=== PATIENT | female | born 1975 | race Caucasian/White ===

== ENCOUNTER 2019-09-19 13:24 | Emergency (ER) | payer MEDICAID ==
[~2019-09-19] VITALS: Ht 170.2 cm; Wt 79.0 kg
[2019-09-19] MEDS ORDERED: ketorolac trometh inj. 60 MG/2 ML VIAL IM ONE (15:35)
[2019-09-19] MEDS ORDERED: LIDOcaine 5% patch TP ONE (15:35)
[2019-09-19] MEDS ORDERED: triamcinolone acetonide 40mg/ml inj IM ONE (15:35)
[2019-09-19 15:48] VITALS: BP 111/74
[2019-09-19] MEDS ORDERED: HYDR-4383 PO (16:25)
[2019-09-19] MEDS ORDERED: CELE-193 PO (16:25)
[2019-09-19] MEDS ORDERED: METH4TAB81 PO (16:25)
== END 2019-09-19 17:06 | disposition home or self-care (01) ==
LOC: ER 13:25
DX: M54.5 Low back pain (principal); M25.562 Pain in left knee; M70.62 Trochanteric bursitis, left hip; G57.02 Lesion of sciatic nerve, left lower limb; G89.29 Other chronic pain; Z88.2 Allergy status to sulfonamides
CPT/HCPCS: 96372; 99284; J1885; J3301

== ENCOUNTER 2020-02-19 09:46 | Emergency (ER) | payer MEDICAID ==
[~2020-02-19] VITALS: Ht 170.2 cm; Wt 78.2 kg
[~2020-02-19 09:46] MED LIST: HYDR-4383 PO; METH4TAB81 PO
--- NOTE | 2020-02-19 10:15 | NUR ---
DISCUSSED THE PT C/O WITH THE PA BURN VERBAL ORDERTO ORDER ACS PROTOCOL.
[2020-02-19 10:41] LABS: BASOPHILS % (AUTO) 0.9 % (0-1); EOSINOPHILS # (AUTO) 0.1 X10'3 (0-0.9); EOSINOPHILS % (AUTO) 2.5 % (0-6); LYMPHOCYTES # (AUTO) 1.1 X10'3 (1.1-4.8); LYMPHOCYTES % (AUTO) 24.2 % (21-51); MEAN CORPUSCULAR HEMOGLOBIN 29.9 PG (27.0-31.0); MEAN CORPUSCULAR HGB CONC 33.4 g/dL (33.0-36.5); MEAN CORPUSCULAR VOLUME 89.6 FL (78-98); MEAN PLATELET VOLUME 7.5 FL (7.4-10.4); MONOCYTES # (AUTO) 0.3 X10'3 (0-0.9); MONOCYTES % (AUTO) 7.4 % (2-12); NEUTROPHILS # (AUTO) 2.9 X10'3 (1.8-7.7); PLATELET COUNT 207 X10'3 (140-440); RED BLOOD COUNT 4.02 X10'6 (4.20-5.60); WHITE BLOOD COUNT 4.4 X10'3 (4.5-11.0)
[2020-02-19 10:52] VITALS: BP 127/86
[2020-02-19 10:58] LABS: ALANINE AMINOTRANSFERASE 72 U/L (12-78); ALBUMIN 3.8 G/DL (3.4-5.0); ALKALINE PHOSPHATASE 96 IU/L (46-116); ANION GAP 8 (8-16); ASPARTATE AMINO TRANSFERASE 23 U/L (10-37); BILIRUBIN,TOTAL 0.4 MG/DL (0.1-1.0); BLOOD UREA NITROGEN 15 MG/DL (7-18); BUN/CREATININE RATIO 19.7 (6.6-38.0); CALCIUM 9.4 MG/DL (8.5-10.1); CHLORIDE 108 MMOL/L (99-107); CREATININE 0.76 MG/DL (0.40-0.90); GLUCOSE 90 MG/DL (70-104); SODIUM 143 MMOL/L (135-145); TOTAL CARBON DIOXIDE 26.7 MMOL/L (24-32); TOTAL PROTEIN 7.7 G/DL (6.4-8.2); eGFR 83 ML/MIN
[2020-02-19] MEDS ORDERED: hydrOXYzine 25 MG tablet PO ONE (11:00)
--- NOTE | 2020-02-19 12:10 | NUR ---
notifiedd shahab templeton that pt lft er and told the registration taht she is been discharged,as per shahab templeton said she is going to d/c pt ruba ,charge nurse pamela borrego.
== END 2020-02-19 12:15 | disposition left against medical advice (07) ==
LOC: ER 09:46
DX: R07.89 Other chest pain (principal); G89.29 Other chronic pain; F17.200 Nicotine dependence, unspecified, uncomplicated; Z88.2 Allergy status to sulfonamides; Z88.5 Allergy status to narcotic agent; Z79.899 Other long term (current) drug therapy
CPT/HCPCS: 36415; 71045; 80053; 83880; 84484; 85025; 93005; 99285

== ENCOUNTER 2020-12-16 11:23 | Emergency (ER) | payer MEDICAID ==
[~2020-12-16] VITALS: Ht 170.2 cm; Wt 81.8 kg
[2020-12-16 11:27] VITALS: BP 141/94
[2020-12-16] MEDS ORDERED: dexamethasone sod phosphate 10mg/ml inj IM STA (11:27)
[2020-12-16] MEDS ORDERED: diphenhydrAMINE 50 mg/ml inj IM ONE (11:30)
[2020-12-16] MEDS ORDERED: epiNEPHrine 1 mg/ml inj IM STA (11:32)
--- NOTE | 2020-12-16 11:37 | NUR ---
IV INITIATED, OK TO GIVE DECADRON AND BENADRYL IV PER DR. BEST WHO IS AT BEDSIDE.
--- NOTE | 2020-12-16 11:40 | NUR ---
VERBAL ORDER FOR EPI 0.3MG IM PER DR BEST. EPI GIVEN IM TO RIGHT UPPER ARM. PT PLACED ON MONITOR
[2020-12-16] MEDS ORDERED: LORazepam 2 mg/ml vial IV ONE (11:45)
[2020-12-16] MEDS ORDERED: ipratropium/albuterol 3ml nebule NEB ONE (11:45)
[2020-12-16] MEDS ORDERED: PRED20TA PO (12:55)
[2020-12-16] MEDS ORDERED: EPIN0.3P3 IJ (12:55)
[2020-12-16] MEDS ORDERED: DOXY100C43 PO (12:55)
== END 2020-12-16 13:10 | disposition home or self-care (01) ==
LOC: ER 11:24
DX: R06.02 Shortness of breath (principal); T63.441A Toxic effect of venom of bees, accidental (unintentional), initial encounter; J45.909 Unspecified asthma, uncomplicated; G89.29 Other chronic pain; F17.210 Nicotine dependence, cigarettes, uncomplicated; Z88.2 Allergy status to sulfonamides; Z88.5 Allergy status to narcotic agent; Z91.013 Allergy to seafood; Z79.2 Long term (current) use of antibiotics; Z79.899 Other long term (current) drug therapy; Y92.89 Other specified places as the place of occurrence of the external cause
CPT/HCPCS: 94640; 96372; 96374; 99291; J0171; J1100; J1200; J2060; 94760

== ENCOUNTER 2022-09-10 18:03 | Emergency (ER) | payer MEDICAID ==
[~2022-09-10] VITALS: Ht 170.2 cm; Wt 84.0 kg
[~2022-09-10 18:03] MED LIST changes: +EPIN0.3P3 IJ
[2022-09-10] MEDS ORDERED: ketorolac trometh. 30mg/ml inj. IM ONE (18:20)
[2022-09-10] MEDS ORDERED: ketorolac trometh inj. 60 MG/2 ML VIAL IM ONE (18:20)
[2022-09-10 18:55] VITALS: BP 121/81
== END 2022-09-10 19:20 | disposition home or self-care (01) ==
LOC: ER 18:04
DX: M25.562 Pain in left knee (principal); R06.02 Shortness of breath; G89.29 Other chronic pain; F12.10 Cannabis abuse, uncomplicated; Z88.2 Allergy status to sulfonamides; Z79.899 Other long term (current) drug therapy; Z88.5 Allergy status to narcotic agent; Z91.013 Allergy to seafood
CPT/HCPCS: 96372; 99283; J1885

== ENCOUNTER 2022-11-03 19:15 | Emergency (ER) | payer MEDICAID ==
[~2022-11-03] VITALS: Ht 170.2 cm; Wt 180.0 kg
[2022-11-03] MEDS ORDERED: ipratropium 0.5 MG/2.5ML nebule IH ONE (19:40)
[2022-11-03] MEDS ORDERED: CefTRIAXone/D5W-Rocephin 1gm 50 ML IV ONE (19:40)
[2022-11-03] MEDS ORDERED: azithromycin 250mg tablet PO ONE (19:40)
[2022-11-03] MEDS ORDERED: albuterol 2.5 MG/3 ML nebule NEB ONE (19:40)
[2022-11-03] MEDS ORDERED: normal saline 1000ML IV soln IVB ONE (19:40)
[2022-11-03] MEDS ORDERED: methylPREDNISolone sod succ 125mg/2ml vial IV ONE (19:40)
[2022-11-03] MEDS ORDERED: albuterol 2.5 MG/3 ML nebule CONTNEB PRN (19:40)
[2022-11-03 20:18] LABS: RED CELL DISTRIBUTION WIDTH 15.4 % (11.5-14.5)
[2022-11-03 20:20] LABS: BASOPHILS # (AUTO) 0.1 X10'3 (0-0.2); BASOPHILS % (AUTO) 1.3 % (0-1); EOSINOPHILS # (AUTO) 0.1 X10'3 (0-0.9); EOSINOPHILS % (AUTO) 2.5 % (0-6); HEMATOCRIT 35.1 % (35.0-45.0); HEMOGLOBIN 11.7 g/dl (12.0-16.0); LYMPHOCYTES # (AUTO) 2.1 X10'3 (1.1-4.8); LYMPHOCYTES % (AUTO) 39.8 % (21-51); MEAN CORPUSCULAR HEMOGLOBIN 29.2 PG (27.0-31.0); MEAN CORPUSCULAR HGB CONC 33.3 g/dL (33.0-36.5); MEAN CORPUSCULAR VOLUME 87.8 FL (78-98); MEAN PLATELET VOLUME 7.5 FL (7.4-10.4); MONOCYTES # (AUTO) 0.4 X10'3 (0-0.9); MONOCYTES % (AUTO) 6.7 % (2-12); NEUTROPHILS # (AUTO) 2.6 X10'3 (1.8-7.7); NEUTROPHILS % (AUTO) 49.7 % (42-75); PLATELET COUNT 221 X10'3 (140-440); WHITE BLOOD COUNT 5.3 X10'3 (4.5-11.0)
[2022-11-03 20:23] LABS: D-DIMER 0.89 MG/L FEU (0-0.50)
[2022-11-03 20:24] LABS: ALANINE AMINOTRANSFERASE 25 U/L (12-78); ALBUMIN 3.6 G/DL (3.4-5.0); ALBUMIN/GLOBULIN RATIO 1.1 (1.1-1.5); ALKALINE PHOSPHATASE 84 IU/L (46-116); ANION GAP 6 (8-16); ASPARTATE AMINO TRANSFERASE 28 U/L (10-37); BILIRUBIN,TOTAL 0.2 MG/DL (0.1-1.0); BLOOD UREA NITROGEN 8 MG/DL (7-18); BUN/CREATININE RATIO 7.3 (10.0-20.0); CALCIUM 8.8 MG/DL (8.5-10.1); CHLORIDE 108 MMOL/L (99-107); CREATININE 1.09 MG/DL (0.40-0.90); GLUCOSE 114 MG/DL (70-104); POTASSIUM 3.5 MMOL/L (3.5-5.1); SODIUM 142 MMOL/L (135-145); TOTAL CARBON DIOXIDE 28.4 MMOL/L (24-32); eGFR 54 ML/MIN
[2022-11-03] MEDS ORDERED: iohexol 350MG/ML 100ml bottle IV ONE (20:56)
[2022-11-03] MEDS ORDERED: AZIT-164 PO (21:34)
[2022-11-03] MEDS ORDERED: ALB0.5UD IH (21:34)
[2022-11-03] MEDS ORDERED: PRED50TA PO (21:34)
[2022-11-03 21:45] VITALS: BP 117/67
== END 2022-11-03 21:47 | disposition home or self-care (01) ==
LOC: ER 19:16
DX: J45.901 Unspecified asthma with (acute) exacerbation (principal); R05.8 Other specified cough; J44.9 Chronic obstructive pulmonary disease, unspecified; G89.29 Other chronic pain; Z90.49 Acquired absence of other specified parts of digestive tract; Z90.710 Acquired absence of both cervix and uterus; F17.200 Nicotine dependence, unspecified, uncomplicated; F12.90 Cannabis use, unspecified, uncomplicated; Z88.5 Allergy status to narcotic agent; Z88.2 Allergy status to sulfonamides; Z91.013 Allergy to seafood; Z79.2 Long term (current) use of antibiotics; Z79.899 Other long term (current) drug therapy
CPT/HCPCS: 36415; 71045; 80053; 83605; 83880; 84484; 85025; 85379; 87040; 93005; 96365; 96375; 99285; J0696; J2930; J7030; 94760; A7015; J3490; Q9967

== ENCOUNTER 2023-01-16 18:56 | Emergency (ER) | payer MEDICAID ==
[~2023-01-16] VITALS: Ht 170.2 cm; Wt 86.4 kg
[~2023-01-16 18:56] MED LIST changes: +PRED50TA PO
[2023-01-16 18:59] VITALS: TEMP 98.6
[2023-01-16 19:15] LABS: BASOPHILS # (AUTO) 0.1 X10'3 (0-0.2); BASOPHILS % (AUTO) 1.2 % (0-1); EOSINOPHILS # (AUTO) 0.1 X10'3 (0-0.9); EOSINOPHILS % (AUTO) 2.2 % (0-6); HEMATOCRIT 38.9 % (35.0-45.0); HEMOGLOBIN 12.9 g/dl (12.0-16.0); LYMPHOCYTES # (AUTO) 1.9 X10'3 (1.1-4.8); LYMPHOCYTES % (AUTO) 30.4 % (21-51); MEAN CORPUSCULAR HEMOGLOBIN 29.3 PG (27.0-31.0); MEAN CORPUSCULAR HGB CONC 33.3 g/dL (33.0-36.5); MEAN CORPUSCULAR VOLUME 88.1 FL (78-98); MEAN PLATELET VOLUME 7.1 FL (7.4-10.4); MONOCYTES # (AUTO) 0.3 X10'3 (0-0.9); MONOCYTES % (AUTO) 5.7 % (2-12); NEUTROPHILS # (AUTO) 3.7 X10'3 (1.8-7.7); NEUTROPHILS % (AUTO) 60.5 % (42-75); PLATELET COUNT 228 X10'3 (140-440); RED BLOOD COUNT 4.42 X10'6 (4.20-5.60); RED CELL DISTRIBUTION WIDTH 15.8 % (11.5-14.5); WHITE BLOOD COUNT 6.1 X10'3 (4.5-11.0)
[2023-01-16 19:32] LABS: ALANINE AMINOTRANSFERASE 30 U/L (12-78); ALBUMIN 3.9 G/DL (3.4-5.0); ALKALINE PHOSPHATASE 87 IU/L (46-116); ANION GAP 10 (8-16); ASPARTATE AMINO TRANSFERASE 14 U/L (10-37); BILIRUBIN,TOTAL 0.3 MG/DL (0.1-1.0); BLOOD UREA NITROGEN 10 MG/DL (7-18); BUN/CREATININE RATIO 11.5 (10.0-20.0); CALCIUM 9.2 MG/DL (8.5-10.1); CHLORIDE 105 MMOL/L (99-107); CREATININE 0.87 MG/DL (0.40-0.90); GLUCOSE 124 MG/DL (70-104); POTASSIUM 3.6 MMOL/L (3.5-5.1); SODIUM 140 MMOL/L (135-145); TOTAL CARBON DIOXIDE 25.2 MMOL/L (24-32); TOTAL PROTEIN 7.8 G/DL (6.4-8.2); eCRCL 79 ML/MIN; eGFR 70 ML/MIN
[2023-01-16 19:40] LABS: PRO BRAIN NATRIURETIC PEPTIDE 49 PG/ML (0-125)
[2023-01-16 20:04] VITALS: BP 122/99; PULSE 115; RESP 26; O2SAT 98
== END 2023-01-16 20:46 | disposition left against medical advice (07) ==
LOC: ER 18:57
DX: R07.89 Other chest pain (principal); Z53.21 Procedure and treatment not carried out due to patient leaving prior to being seen by health care provider
CPT/HCPCS: 36415; 71045; 80053; 83880; 84484; 85025; 93005; 99281

== ENCOUNTER 2023-08-21 08:21 | Outpatient (CLI) | payer MEDICAID | END 2023-08-21 23:59 | disposition home or self-care (01) | LOC: RAD 08:21 | PROVIDERS: ATTEND Nurse Practitioner Primary Care | DX: R22.32 Localized swelling, mass and lump, left upper limb (principal) | CPT/HCPCS: 76882 ==

== ENCOUNTER 2023-09-13 15:32 | Emergency (ER) | payer MEDICAID ==
[~2023-09-13] VITALS: Ht 167.6 cm; Wt 81.1 kg
[2023-09-13 15:36] VITALS: BP 116/77; PULSE 89; RESP 18; TEMP 98.5; O2SAT 98
== END 2023-09-13 16:41 | disposition left against medical advice (07) ==
LOC: ER 15:32
DX: M79.601 Pain in right arm (principal); M79.605 Pain in left leg; Z53.21 Procedure and treatment not carried out due to patient leaving prior to being seen by health care provider

== ENCOUNTER 2023-09-16 16:41 | Emergency (ER) | payer MEDICAID ==
[~2023-09-16] VITALS: Ht 167.6 cm; Wt 89.0 kg
[2023-09-16 16:51] VITALS: BP 140/86; PULSE 90; RESP 16; TEMP 98.2; O2SAT 96
[2023-09-16] MEDS ORDERED: ketorolac tromethamine 15mg/ml inj. IM ONE (20:45)
== END 2023-09-16 21:24 | disposition home or self-care (01) ==
LOC: ER 16:41
DX: M25.511 Pain in right shoulder (principal); Z88.2 Allergy status to sulfonamides; Z88.8 Allergy status to other drugs, medicaments and biological substances; Z91.013 Allergy to seafood; J45.909 Unspecified asthma, uncomplicated; J44.9 Chronic obstructive pulmonary disease, unspecified; G89.29 Other chronic pain; M54.9 Dorsalgia, unspecified; Z90.49 Acquired absence of other specified parts of digestive tract; Z90.710 Acquired absence of both cervix and uterus; F12.90 Cannabis use, unspecified, uncomplicated
CPT/HCPCS: 93971; 99284